=== PATIENT | male | born 1990 | race Caucasian/White ===

== ENCOUNTER 2021-03-16 06:49 | Outpatient (CLI) | payer OTHER, SELFPAY ==
[2021-03-16 07:11] LABS: Add Urine Microscopic? NO; Charge for UA Resulting for Rev
[2021-03-16 07:17] LABS: Basophils % 0.4 %; Eosinophils # 0.1 10^3/uL (0.0-0.8); Eosinophils % 0.7 %; Hematocrit 46.5 % (42.0-52.0); Hemoglobin 15.7 g/dL (11.7-16.6); Lymphocytes # 4.3 10^3/uL (0.8-4.8); Lymphocytes % 42.7 %; Mean Corpuscular HGB Conc 33.8 g/dL (30.0-36.0); Mean Corpuscular Hemoglobin 30.5 pg (28.0-34.0); Mean Corpuscular Volume 90.3 fl (80-94); Mean Platelet Volume 10.4 fL (7.4-10.4); Monocytes # 0.7 10^3/uL (0.2-0.9); Monocytes % 6.5 %; Neutrophils # 4.96 10^3/uL (1.8-7.7); Neutrophils % 49.5 %; Nucleated Red Blood Cells % 0 %; Platelet Count 308 10^3/cmm (130-400); Red Blood Count 5.15 10^6/uL (4.1-5.3); Red Cell Distribution Width 11.4 % (12.1-15.1)
[2021-03-16 07:36] LABS: Anion Gap 15.1 (5-19); Blood Urea Nitrogen 17 mg/dL (6-20); Calcium 8.9 mg/dL (8.5-10.5); Carbon Dioxide 25 mmol/L (22-29); Chloride 102 mmol/L (98-107); Glomerular Filtration Rate 78.1 mL/min (90-130); Glucose 99 mg/dL (65-115); Osmolality Calculated 288 mOsm/kg (285-295); Potassium 4.1 mmol/L (3.5-5.1); Sodium 138 mmol/L (136-145)
[2021-03-16 07:45] LABS: Bilirubin Urine Neg (Negative); Blood Urine Neg (Negative); Glucose Urine UA Norm (Normal); Ketones Urine Negative (Negative); Leukocyte Esterase Urine Negative (Negative); Nitrate Urine Negative (Negative); Protein Urine Neg (Negative); Specific Gravity, Urine 1.005 (1.005-1.030); Urine Appearance Clear (CLEAR); Urine Color Straw (Yellow); Urobilinogen Urine Norm (Negative); pH Urine 7 (5-7)
== END 2021-03-16 06:50 | disposition home or self-care (01) ==
PROVIDERS: Visit Provider Family Medicine
DX: I10 Essential (primary) hypertension (principal)
CPT/HCPCS: 80048; 81003; 85025

== ENCOUNTER 2021-04-19 10:43 | Emergency (ER) | payer OTHER, SELFPAY ==
--- NOTE | 2021-04-19 10:54 | ED_ITS ---
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 This just happened 10 minutes ago he had stuck his pinky finger on the left. Denies any pain Associated symptoms: Deny chest pain, dyspnea, headache(s) or rash Review of Systems Const: Denies: fever(s) Eyes: Denies: change in vision ENMT: Denies: throat pain Card: Denies: chest pain Resp: Denies: dyspnea GI: Denies: abdominal pain : Denies: flank pain Musc: Denies: neck pain Skin/Breast: Denies: rash Neuro: Denies: headache(s) Psych: Denies: anxiety Physical Exam Const: COMMON NORMALS: no acute distress and patient oriented x3 HENMT: COMMON NORMALS: normocephalic HEAD & SCALP: normocephalic Neck/C-Spine: COMMON NORMALS: supple Chest: COMMONS NORMALS: normal inspection of the chest Resp: COMMON NORMALS: normal respiratory effort Extremity: COMMON NORMALS: normal to inspection Neuro: COMMON NORMALS: patient oriented x3 Psych: COMMON NORMALS: mental status grossly normal Skin: NARRATIVE SKIN EXAM: small puncture wound o left pinky finger MDM - General Adult MDM Narrative: Medical decision making narrative: Presents here with finger stick injury to left pinky finger labs are drawn he stable for discharge Discharge Plan Discharge Patient Disposition: Home Clinical Impression: Needlestick injury of finger Condition: Stable Discharge Orders: Discharge ED (Routine); Ordered 04/19/21 Ordered By: Rusty Wilson Discharge Diet: Advance as tolerated Discharge Activity: Resume usual activity Patient Instructions: Needle Stick Injuries (ED) Coding Level of Care Code ED Aircraft Skin Burnisher for Irma Sprague
[2021-04-19 12:14] LABS: HIV 1 & 2 Antibody Non-Reactive (Non-Reactiv); HIV 1 & 2 Antigen Non-Reactive (Non-Reactiv)
[2021-04-19 12:19] LABS: Hepatitis B Core AB, Total Non-Reactive (Nonreactive); Hepatitis B Surface Antigen Non-Reactive (Nonreactive)
[2021-04-19 13:29] LABS: Hepatitis A Antibody IgM Non-Reactive (Nonreactive); Hepatitis B Surface AB 34.5 (11.5-1000); Hepatitis C Virus Antibody Non-Reactive (Nonreactive)
== END 2021-04-19 11:15 | disposition home or self-care (01) ==
LOC: ER 11:03
PROVIDERS: Emergency Provider Emergency Medicine; PCP Family Medicine
DX: S61.237A Puncture wound without foreign body of left little finger without damage to nail, initial encounter (principal); W46.1XXA Contact with contaminated hypodermic needle, initial encounter; Y92.238 Other place in hospital as the place of occurrence of the external cause; Y99.0 Civilian activity done for income or pay
CPT/HCPCS: 86705; 86706; 86709; 86803; 87340; 87806; 99281

== ENCOUNTER 2021-07-26 08:39 | Outpatient (CLI) | payer OTHER, SELFPAY ==
[2021-07-26] MEDS: cloNIDine 0.1 mg Tablet PO (08:55)
== END 2021-07-26 08:40 | disposition home or self-care (01) ==
PROVIDERS: PCP Family Medicine; Visit Provider Family Medicine
DX: I10 Essential (primary) hypertension (principal)

== ENCOUNTER 2021-10-18 05:28 | Emergency (ER) | payer OTHER, SELFPAY ==
[2021-10-18 05:37] VITALS: BP 162/113; PULSE 71; RESP 15; TEMP 36.7; O2SAT 98; BMI 26.9
--- NOTE | 2021-10-18 05:49 | CTR_ITS ---
PROCEDURE INFORMATION: Exam: CT Head Without Contrast Exam date and time: 10/18/2021 6:21 AM Age: 31 years old Clinical indication: Pain; Headache; Migraine TECHNIQUE: Imaging protocol: Computed tomography of the head without contrast. Radiation optimization: All CT scans at this facility use at least one of these dose optimization techniques: automated exposure control; mA and/or kV adjustment per patient size (includes targeted exams where dose is matched to clinical indication); or iterative reconstruction. COMPARISON: No relevant prior studies available. RADIATION DOSE METRICS: Total DLP (mGy-cm): 948.81 FINDINGS: Brain: There is no acute intracranial hemorrhage. No extra-axial fluid collection. No evidence of acute infarct. Enriquez white differentiation is intact. There is no evidence of mass. There is no mass effect or midline shift. Cerebral ventricles: No ventriculomegaly. Paranasal sinuses: Visualized sinuses are unremarkable. No fluid levels. Mastoid air cells: No significant mastoid effusion. Bones/joints: No acute fracture. Soft tissues: Unremarkable as visualized. CT/CT head wo con* [id number] IMPRESSION: No evidence of acute intracranial abnormality. No acute hemorrhage. No evidence of acute infarct or mass.
[2021-10-18] MEDS: fentaNYL 50 mcg/mL INJ 2mL 75 MCG IVP (06:05)
[2021-10-18] MEDS: metoclopramide 5 mg/mL SDV 2 mL 10 MG IVP (06:06)
[2021-10-18 06:24] LABS: Basophils # 0.1 10^3/uL (0.0-0.1); Basophils % 0.5 %; Eosinophils # 0.2 10^3/uL (0.0-0.8); Eosinophils % 2.2 %; Hematocrit 43.7 % (42.0-52.0); Hemoglobin 15.1 g/dL (11.7-16.6); Lymphocytes # 2.9 10^3/uL (0.8-4.8); Lymphocytes % 31.4 %; Mean Corpuscular HGB Conc 34.6 g/dL (30.0-36.0); Mean Corpuscular Hemoglobin 30.8 pg (28.0-34.0); Mean Corpuscular Volume 89.2 fl (80-94); Mean Platelet Volume 10.4 fL (7.4-10.4); Monocytes # 0.6 10^3/uL (0.2-0.9); Monocytes % 6.4 %; Neutrophils # 5.41 10^3/uL (1.8-7.7); Neutrophils % 59.3 %; Nucleated Red Blood Cells % 0 %; Platelet Count 345 10^3/cmm (130-400); White Blood Count 9.1 10^3/uL (4.0-10.0)
[2021-10-18] MEDS: valproic acid inj 500 MG in sodium chloride 0.9% 50 ML 55 MG IV (06:26)
[2021-10-18 06:42] LABS: Alanine Aminotransferase 50 U/L (0-41); Albumin Level 4.6 g/dL (3.5-5.2); Alkaline Phosphatase 78 IU/L (40-130); Anion Gap 13.8 (5-19); Aspartate Amino Transferase 23 U/L (0-40); Blood Urea Nitrogen 27 mg/dL (6-20); Calcium 9.3 mg/dL (8.5-10.5); Carbon Dioxide 25 mmol/L (22-29); Chloride 107 mmol/L (98-107); Globulin 2.4 g/dL (1.3-4.6); Glomerular Filtration Rate 70.2 mL/min (90-130); Glucose 91 mg/dL (65-115); Osmolality Calculated 299 mOsm/kg (285-295); Potassium 3.8 mmol/L (3.5-5.1); Sodium 142 mmol/L (136-145); Total Bilirubin 0.6 mg/dL (0.15-1.2)
[2021-10-18 06:44] LABS: Erythrocyte Sedimentation Rate < 1 mm/hr (0-10)
[2021-10-18] MEDS: sodium chloride 0.9% 500 ML 999 ML IV (06:54)
--- NOTE | 2021-10-18 18:48 | W.ED.HA ---
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 Pain is a frontal headache, mainly on the left side with a tingling sensation under the skin. It radiates to the occiput. No definite vision changes. Noise seems to worsen. No weakness. Nausea with no vomiting. He has taken Tylenol, caffeine, ibuprofen, and Zofran without relief. MD elicited complaint: headache Location: left and frontal Severity: moderate Associated symptoms: Reports nausea and sound sensitivity; Deny chest pain, confusion, cough, eye pain, fever(s), loss of vision or neck stiffness Treatments prior to arrival: acetaminophen and ibuprofen Review of Systems Const: Denies: fever(s) Eyes: Denies: change in vision Card: Denies: chest pain GI: Reports: nausea Musc: Denies: neck pain Neuro: Denies: confusion Physical Exam Const: GENERAL APPEARANCE: cooperative HENMT: COMMON NORMALS: normocephalic, atraumatic and Normal external nose present HEAD & SCALP: normocephalic and atraumatic FACE & SINUS: normal facial exam and face symmetric NOSE: Normal external nose present Eye: COMMON NORMALS: Equal, round and reactive pupils present PUPIL: Yes Equal, round and reactive pupils present Resp: COMMON NORMALS: normal respiratory effort, No use of accessory muscles and clear to auscultation bilaterally AUSCULTATION: clear to auscultation bilaterally Cardio: COMMON NORMALS: regular rate and regular rhythm RATE: regular rate RHYTHM: regular rhythm GI: INSPECTION: No abdominal distension Neuro: WALTER COMA SCALE: document GCS findings [place] coma scale eye opening: Spontaneous [place] coma scale verbal response: Orientated [place] coma scale motor response: Obey commands Walter coma scale total score: 15 COORDINATION/BALANCE: exohci-fz-kpod test normal and uxyp-xr-cumf test normal GAIT: Yes Normal gait present MOTOR EXAM: Pronator motor function not present COORDINATION: [id number]-bk-[id number] test normal and ohlh-cz-[id number] test normal Psych: COMMON NORMALS: mental status grossly normal Course Vital Signs: Vital signs: Vital Signs Temperature 98.1 F 10/18/21 05:37 Pulse Rate 71 10/18/21 05:37 Respiratory Rate 15 10/18/21 05:37 Blood Pressure 162/113 10/18/21 05:37 Pulse Oximetry 98 10/18/21 05:37 MDM - Headache Medical Decision Making Head CT is negative. CBC normal. BUN is 27. He is given a 500 mL saline bolus. Sed rate and CRP are normal. Headache resolved after fentanyl, Reglan, Depacon. He will be prescribed Imitrex for breakthrough migraine in the future. He was advised to watch his blood pressure closely. Lab Data : 10/18/21 06:06 10/18/21 06:[address] 10/18/21 05:49 IMPRESSION: No evidence of acute intracranial abnormality. No acute hemorrhage. No evidence of acute infarct or mass. Laboratory Results WBC 9.1 10^3/uL (4.0-10.0) 10/18/21 06:06 RBC 4.90 10^6/uL (4.1-5.3) 10/18/21 06:06 Hgb 15.1 g/dL (11.7-16.6) 10/18/21 06:06 Hct 43.7 % (42.0-52.0) 10/18/21 06:06 MCV 89.2 fl (80-94) 10/18/21 06:06 MCH 30.8 pg (28.0-34.0) 10/18/21 06:06 MCHC 34.6 g/dL (30.0-36.0) 10/18/21 06:06 RDW 11.0 % (12.1-15.1) L 10/18/21 06:06 Plt Count 345 10^3/cmm (130-400) 10/18/21 06:06 MPV 10.4 fL (7.4-10.4) 10/18/21 06:06 Neut % (Auto) 59.3 % 10/18/21 06:06 Lymph % (Auto) 31.4 % 10/18/21 06:06 [place] % (Auto) 6.4 % 10/18/21 06:06 Eos % (Auto) 2.2 % 10/18/21 06:06 Baso % (Auto) 0.5 % 10/18/21 06:06 Neut # (Auto) 5.41 10^3/uL (1.8-7.7) 10/18/21 06:06 Lymph # (Auto) 2.9 10^3/uL (0.8-4.8) 10/18/21 06:06 [place] # (Auto) 0.6 10^3/uL (0.2-0.9) 10/18/21 06:06 Eos # (Auto) 0.2 10^3/uL (0.0-0.8) 10/18/21 06:06 Baso # (Auto) 0.1 10^3/uL (0.0-0.1) 10/18/21 06:06 Nucleated RBC % (auto) 0 % 10/18/21 06:06 Nucleated RBCs # 0.0 /100WBC 10/18/21 06:06 ESR < 1 mm/hr (0-10) 10/18/21 06:06 Sodium 142 mmol/L (136-145) 10/18/21 06:06 Potassium 3.8 mmol/L (3.5-5.1) 10/18/21 06:06 Chloride 107 mmol/L (98-107) 10/18/21 06:06 Carbon Dioxide 25 mmol/L (22-29) 10/18/21 06:06 Anion Gap 13.8 (5-19) 10/18/21 06:06 BUN 27 mg/dL (6-20) H 10/18/21 06:06 Creatinine 1.2 mg/dL (0.7-1.2) 10/18/21 06:06 GFR Calculation 70.2 mL/min (90-130) L 10/18/21 06:06 Glucose 91 mg/dL (65-115) 10/18/21 06:06 Calculated Osmolality 299 mOsm/kg (285-295) H 10/18/21 06:06 Calcium 9.3 mg/dL (8.5-10.5) 10/18/21 06:06 Total Bilirubin 0.6 mg/dL (0.15-1.2) 10/18/21 06:06 AST 23 U/L (0-40) 10/18/21 06:06 ALT 50 U/L (0-41) H 10/18/21 06:06 Alkaline Phosphatase 78 IU/L (40-130) 10/18/21 06:06 C-Reactive Protein 3.0 mg/L (0.0-4.9) 10/18/21 06:06 Total Protein 7.0 g/dL (6.6-8.7) 10/18/21 06:06 Albumin 4.6 g/dL (3.5-5.2) 10/18/21 06:06 Globulin 2.4 g/dL (1.3-4.6) 10/18/21 06:06 Discharge Plan Discharge Patient Disposition: Home Clinical Impression: Headache Condition: Stable Prescriptions: New Imitrex 100 mg tablet See Rx Instructions .ROUTE .COMPLEX Qty: 10 0RF Rx Instructions: take 1 tab at onset of headache; if no relief, may repeat 1 tab after at least 2 hrs; max = 2 tabs/24 hrs Discharge Orders: Discharge ED (Routine); Ordered 10/18/21 Ordered By: Juan Lane Referrals: Reuben Griffith DO [Primary Care Provider] - 4-7 days Discharge Diet: Advance as tolerated Discharge Activity: Increase activity as tolerated Patient Instructions: Acute Headache (ED) Activity Restrictions/Additional Instructions: Return for worsening headache, mental status changes, weakness, language problems, seizure, any other concerning symptoms. Coding Level of Care Code ED Refrigeration Service Inspector for Irma Sprague
== END 2021-10-18 07:27 | disposition home or self-care (01) ==
PROVIDERS: Emergency Provider Emergency Medicine; PCP Family Medicine
DX: R51.9 Headache, unspecified (principal)
CPT/HCPCS: 36415; 70450; 80053; 85025; 85651; 86140; 96365; 96375; 99284; J2765; J3010; J7040